=== PATIENT | male | born 1995 | race Caucasian/White ===

== ENCOUNTER 2016-11-23 01:36 | Emergency (ER) | payer BC ==
[2016-11-23] MEDS ORDERED: [UNRECOGNIZED DRUG - OTHER] (02:16)
[2016-11-23 03:06] LABS: HCT-HEMATOCRIT 49.1 % (36.0-53.5); HGB-HEMOGLOBIN 17.8 gm/dl (13.5-17.0); MCH (MEAN CORPUSCULAR HGB) 30.6 pg (28.0-32.0); MCHC MEAN CORPUSCULAR HGB CONC 36.3 % (32.0-36.0); MCV (MEAN CELL VOLUME) 84.5 fl (82.0-96.0); MEAN PLATELET VOLUME 10.6 cmc (9.4-12.4); NEUTROPHIL-AUTOMATED 12.2 tho/cmm (1.6-8.0); PLATELET COUNT 266 tho/cmm (150-450); RED BLOOD COUNT 5.81 mil/cmm (4.40-5.70); RED CELL DISTRIBUTION WIDTH 11.8 % (12.4-16.4); WHITE BLOOD COUNT 15.1 tho/cmm (4.0-10.0)
[2016-11-23 03:28] LABS: ALBUMIN 4.1 g/dl (3.5-5.0); ALKALINE PHOSPHATASE 103 U/L (33-138); ALT/SGPT 29 U/L (12-78); BILIRUBIN,TOTAL 0.7 mg/dl (0.0-1.5); BLOOD UREA NITROGEN 19 mg/dl (6-24); CALCIUM 9.1 mg/dl (8.5-10.5); CARBON DIOXIDE-VENOUS 20 mmol/L (22-32); CHLORIDE 103 mmol/l (96-110); CREATININE 0.81 mg/dl (0.60-1.30); GLUCOSE 129 mg/dL (70-110); LIPASE 77 U/L (73-393); PHOSPHOROUS 3.7 mg/dl (2.5-4.9); SODIUM 139 mmol/L (135-145); eGFR VALUE FOR BLACK >90 mL/Min
[2016-11-23 03:30] LABS: ANION GAP 20 mmol/L (0-20)
[2016-11-23 03:31] LABS: AST/SGOT 35 U/L (10-40); MAGNESIUM 1.6 mg/dl (1.8-2.6)
[2016-11-23 04:25] LABS: BAND % 23 % (0-20); BAND ABSOLUTE COUNT 3.5 tho/cmm (0-2.0); EOSINOPHIL % 2 % (0-7)
[2016-11-23] MEDS ORDERED: ZOFRAN4 M2 PO (04:34)
[2016-11-23] MEDS ORDERED: BENTYL10 M1 PO (04:34)
[2016-11-23] MEDS ORDERED: REGLAN10 M2 PO (05:39)
== END 2016-11-23 05:36 ==
LOC: EDMED 01:36
PROVIDERS: Emergency Medicine
DX: K52.9 Noninfective gastroenteritis and colitis, unspecified (principal); E86.0 Dehydration; E10.9 Type 1 diabetes mellitus without complications; Z79.4 Long term (current) use of insulin
CPT/HCPCS: J1200; J2270; J2405; J2765; J7030; Q9967